=== PATIENT | female | born 1935 | race Caucasian/White ===

== ENCOUNTER 2017-08-14 11:37 | Outpatient (CLI) | payer OTHER | END 2017-08-14 12:19 | disposition home or self-care (01) | LOC: NUCLEAR 11:37 | DX: I82.220 Acute embolism and thrombosis of inferior vena cava (principal); I87.9 Disorder of vein, unspecified ==

== ENCOUNTER 2020-07-10 05:52 | Day surgery (SDC) | payer OTHER ==
[~2020-07-10 05:52] MED LIST: CRESTOR PO; LOSARTAN PO
[2020-07-10] MEDS ORDERED: CIPRO500 MG PO (10:55)
== END 2020-07-10 15:55 | disposition home or self-care (01) ==
LOC: CIR.AMB 05:52
PROVIDERS: ATTEND Obstetrics & Gynecology Gynecology
DX: N81.0 Urethrocele (principal); N34.2 Other urethritis; Z20.822 Contact with and (suspected) exposure to COVID-19